=== PATIENT | female | born 1985 | race Caucasian/White ===

== ENCOUNTER 2018-06-14 12:03 | Inpatient (IN) | payer MEDICAID, OTHER ==
[~2018-06-14] VITALS: Ht 165.1 cm; Wt 71.7 kg
[~2018-06-14 12:03] MED LIST: IMU50 PO; ONDA8ODT2 PO; SERT100T PO; TRAZ-343 PO
[2018-06-14 12:11] VITALS: BP 126/86
--- NOTE | 2018-06-14 12:16 | NUR ---
PT AMBULATES TO BED 9
--- NOTE | 2018-06-14 12:20 | NUR ---
33 YO F BIB BOYFRIEND W/ C/O RIGHT SIDE RIB PAIN X LAST NIGHT. PT STATES THE PAIN IS SHARP /. DENIES N/V, REPORTS HAVING COLD SYMPTOMS W/ PRODUCTIVE COUGH X 4 DAYS. DIMINISHED RLL , TACHYPENIA. SHALLOW BREATHS. PT STATES INCREASED PAIN WITH DEEP RR. TASHA CONTINUE TO MONITOR. HX CHRONES DISEASE, ILLESOSTOMY RX DENIES
[2018-06-14] MEDS ORDERED: KETOROLAC 30 MG/ML VIAL IVP ONE (12:40)
[2018-06-14] MEDS ORDERED: NACL 0.9% 1,000 ML IV ONE (12:40)
--- NOTE | 2018-06-14 12:47 | NUR ---
PT TO RADIOLOGY VIA W/ IN STABLE CONDITION
[2018-06-14 13:21] LABS: BASOPHILS % (AUTO) 0.1 % (0.0-2.0); HEMATOCRIT 42.9 % (36-48); LYMPHOCYTES # (AUTO) 0.6 K/uL (2.5-16.5); LYMPHOCYTES % (AUTO) 2.6 % (20.5-51.1); MEAN CORPUSCULAR HEMOGLOBIN 28 pg (27-31); MEAN CORPUSCULAR HGB CONC 33 g/dL (33-37); MONOCYTES # (AUTO) 1.4 K/uL (0.8-1.0); MONOCYTES % (AUTO) 6.4 % (1.7-9.3); NEUTROPHILS # (AUTO) 19.5 K/uL (1.8-7.7); NEUTROPHILS % (AUTO) 90.9 % (42.2-75.2); PLATELET COUNT (AUTO) 208 K/uL (140-450); RED BLOOD CELL COUNT(AUTO) 4.99 MIL/uL (4.20-5.40); RED CELL DISTRIBUTION WIDTH 14.6 % (11.6-13.7)
[2018-06-14] MEDS ORDERED: fentaNYL 0.05 MG/ML VIAL IVP ONE (13:25)
[2018-06-14 13:32] LABS: ALBUMIN 3.4 g/dL (3.4-5.0); CREATININE 0.8 mg/dL (0.6-1.3); POTASSIUM 3.3 mmol/L (3.5-5.1); TOTAL BILIRUBIN 2.5 mg/dL (0.0-1.0)
[2018-06-14 13:35] LABS: WHITE BLOOD COUNT (AUTO) 21.5 K/uL (4.8-10.8)
[2018-06-14] MEDS ORDERED: PIPERACILLIN/TAZOBACTAM 3.375 GM in DEXTROSE 5% 50 ML IV ONE (13:45)
--- NOTE | 2018-06-14 14:15 | NUR ---
US AT BEDSIDE.
[2018-06-14] MEDS ORDERED: PIPERACILLIN/TAZOBACTAM 3.375 GM VIAL IV ONE (14:17)
[2018-06-14 14:18] LABS: ANION GAP 13.2 (8-16); CARBON DIOXIDE 23.1 mmol/L (21-32)
[2018-06-14] MEDS ORDERED: ONDANSETRON 4 MG/2 ML VIAL IVP PRN (15:00)
[2018-06-14] MEDS ORDERED: ALBUTEROL 0.083% 2.5 MG/3 ML NEBU IH PRN (15:00)
[2018-06-14] MEDS ORDERED: ACETAMINOPHEN 325 MG TAB PO PRN (15:00)
[2018-06-14] MEDS ORDERED: LORazepam 2 MG/ML VIAL IVP PRN (15:00)
--- NOTE | 2018-06-14 15:51 | NUR ---
PT TAKEN TO FLOOR BY BHARATI KENNEDY VIA WHEELCHAIR
--- NOTE | 2018-06-14 15:58 | NUR ---
Patient will be admitted to care of DR DE LA FUENTE. Admited to M/S. Will go to room 111B. Belongings list completed. Report to KANA CALABRESE .
[2018-06-14 16:00] VITALS: BP 134/78
--- NOTE | 2018-06-14 16:00 | NUR ---
RECEIVED PT REPORT FORM ER NURSE NIKA, AT BEDSIDE. PT IS AAOX4, AMBULATORY. CC: RIGHT RIB PAIN. DX PNA, TRANSAMINITIS, LEUKOCYTOSIS. VITALS TAKEN, MRSA SWAB DONE. PT C/O PAIN 04/08, SEEMS ANXIOUS, WILL ADMINISTER ATIVAN AND CONTACT ATTENDING MD ABOUT PAIN MEDS. ORIENTED PT TO ROOM. BED IN LOWEST POSITION, CALL LIGHT WITHIN REACH. MADE PT AWARE THAT URINE SPECIMEN IS NEEDED.
--- NOTE | 2018-06-14 16:30 | NUR ---
PT STATED SHE HAD DILAUDID 2MG AT OTHER HOSPITAL BEFORE AND THERE WAS NO PROBLEM. SPOKE WITH DR DE LA FUENTE OVER THE PHONE, PAIN MEDS ORDERED, DILAUDID 1MG IVP Q4H.
[2018-06-14] MEDS: NACL 0.9% 1,000 ML IV SCH (16:36)
[2018-06-14] MEDS ORDERED: KETOROLAC 30 MG/ML VIAL IVP PRN (16:40)
[2018-06-14] MEDS: HYDROmorphone 1 MG/ML AMP IVP PRN ×2 (16:57→21:56)
--- NOTE | 2018-06-14 18:30 | NUR ---
PT IS AWAKE, ADMISSION QUESTIONS TAKEN. PT STATED THIRSTY, OFFERED 3 JUICE BOXES. NO S/S OF ACUTE DISTRESS ON ROOM AIR. ILEOSTOMY BAG IS INTACT AND NO LEAKING.
--- NOTE | 2018-06-14 19:30 | NUR ---
ENDORSED PT TO DIRECTOR OF LEADERSHIP DEVELOPMENT RN. PT IN STABLE CONDITION. SIGNIFICANT OTHER AT BEDSIDE.
--- NOTE | 2018-06-14 19:31 | NUR ---
RECEIVED BEDSIDE REPORT FROM DAY SHIFT RN. PT IS A&OX4. PT WITH LABORED RESPIRATION. WHEEZING WILL NOTIFY RT. O2 SAT 95 ON ROOM AIR. RR 20. IV ON L AC INFUSING NS AT 80ML/H. SKIN IS INTACT. SAFETY MEASURES IN PLACE. BOYFRIEND AT BEDSIDE. AWARE OF VISITING HOURS STATES MD GAVE HIM PERMISSION TO STAY THE NIGHT WILL CONFIRM WITH CHARGE NURSE. SAFETY MEASURES IN PLACE. CALL LIGHT WITHIN REACH.
--- NOTE | 2018-06-14 20:00 | NUR ---
PT REFUSED BREATHING TREATMENT. WILL OFFER AGAIN IN 30 MINUTES. O2 SAT 94 RA
[2018-06-14] MEDS: HYDROcodone/APAP 5/325 MG 1 TAB TAB PO PRN (20:33)
--- NOTE | 2018-06-14 20:33 | NUR ---
ADMINISTERED NORCO FOR PAIN AND OFFERED BREATHING TREATMENT PT REFUSED. RT APPLIED NC AT 4L. WILL CONTINUE TO MONITOR. SAFETY MEASURES IN PLACE. BOYFRIEND AT BEDSIDE CALL LIGHT WITHIN REACH.
[2018-06-14] MEDS: NAPROXEN 375 MG TAB PO SCH (20:34)
--- NOTE | 2018-06-14 20:34 | NUR ---
ENDORSED PT TO SOLAR FIELD SERVICE TECHNICIAN RN. PT IN STABLE CONDITION. SIGNIFICANT OTHER AT BEDSIDE. Addendum: 06/14/18 at 2034 by Landry Mccauley RN PLEASE DISCARD, WRONG TIME ENTERED
[2018-06-14] MEDS: PIPER/TAZO 3.375GM/D5W PREMIX 50 ML IV SCH (20:36)
[2018-06-14] MEDS ORDERED: azaTHIOprine 50 MG TAB PO SCH (21:00)
[2018-06-14] MEDS ORDERED: PIPERACILLIN/TAZOBACTAM 3.375 GM in DEXTROSE 5% 50 ML IV SCH (21:00)
[2018-06-14] MEDS ORDERED: traZODone 50 MG TAB PO SCH (21:00)
--- NOTE | 2018-06-14 21:56 | NUR ---
PT COMPLAIN OF PAIN WILL ADMINISTER PAIN MEDICATIONS PER DR ORDERS. [place] STILL REFUSING BREATHING TREATMENT. WILL CONTINUE TO MONITOR.
[2018-06-15] VITALS: BP 121/72
--- NOTE | 2018-06-15 | NUR ---
VITAL SIGNS ARE STABLE. PT STILL REFUSING BREATHING TREATMENT O2 SAT 99% ON NC. BOYFRIEND IS AT BEDSIDE. [facility]
--- NOTE | 2018-06-15 02:00 | NUR ---
PT SLEEPING NO DISTRESS NOTED. RESPIRATION EQUAL AND UNLABORED. CALL LIGHT WITHIN REACH.
[2018-06-15] MEDS: NACL 0.9% 1,000 ML IV SCH (02:56)
[2018-06-15] MEDS: HYDROmorphone 1 MG/ML AMP IVP PRN ×3 (03:00→13:27)
--- NOTE | 2018-06-15 04:00 | NUR ---
ZOSYN NOW INFUSING. PT TOLERATED WELL. NO DISTRESS NOTED. BOYFRIEND AT BEDSIDE. CALL LIGHT WITHIN REACH.
[2018-06-15] MEDS: PIPER/TAZO 3.375GM/D5W PREMIX 50 ML IV SCH ×2 (04:57→12:28)
--- NOTE | 2018-06-15 06:25 | NUR ---
PATIENT HAS BEEN SCREENED AND CATEGORIZED MODERATE NUTRITION RISK. PATIENT WILL BE SEEN WITHIN 3-5 DAYS OF ADMISSION. 06/17/18-06/19/18 KATHRIN ASHFORD MS, RDN
--- NOTE | 2018-06-15 06:25 | NUR ---
SPOKE WITH DR AYALA TO VERIFY DOSE FOR IMURAN. WILL CHANGE DOSE TO 5OMG DAILY PER ORDERS.
[2018-06-15] MEDS: HYDROcodone/APAP 5/325 MG 1 TAB TAB PO PRN (06:59)
--- NOTE | 2018-06-15 07:30 | NUR ---
ENDORSED PT TO DAY SHIFT RN. PT IN STABLE CONDITION.
--- NOTE | 2018-06-15 07:31 | NUR ---
RECEIVED REPORT FORM PM NURSE AT BEDSIDE FOR CONTINUITY OF CARE. PT LYING ON HER BED, FAMILY AT BEDSIDE. PT HAS ILEOSTOMY BAG, HAS IV ACCESS ON HER LFT AC 22 G, IVF INFUSING AT 80 ML/HR. PT COMPLAINING OF PAIN, ASKING FOR PAIN MEDS. INFORMED PT THAT WILL CHECK WITH EMAR AND ADMINISTER MEDS ORDERED. VERBALIZED UNDERSTANDING. PT HAS WHEEZING, DX OF PNA, PER PM NURSE, PT DENIES BT IT MAKES HER MORE ANXIOUS. INFORMED HE THAT WILL HELPS TO CLEAR THE SECRETION FROM LUNGS , HELPS IN BREATHING WELL AND WITH TREATMENT OF PNA. DENIES AT THIS TIME. CALL LIGHT WITHIN REACH. INFORMED HER TO USE CALL LIGHT FO R ANY HELP. WILL CONTINUE TO MONITOR PT.
[2018-06-15 07:40] LABS: BASOPHILS % (AUTO) 0.2 % (0.0-2.0); EOSINOPHILS # (AUTO) 0.1 K/uL (0-0.4); EOSINOPHILS % (AUTO) 0.8 % (0.0-4.0); HEMATOCRIT 40.1 % (36-48); HEMOGLOBIN 13.2 g/dL (12.0-16.0); LYMPHOCYTES # (AUTO) 1.8 K/uL (2.5-16.5); LYMPHOCYTES % (AUTO) 13.6 % (20.5-51.1); MEAN CORPUSCULAR HEMOGLOBIN 28 pg (27-31); MEAN CORPUSCULAR HGB CONC 33 g/dL (33-37); MEAN CORPUSCULAR VOLUME 85.9 fL (80-94); MONOCYTES % (AUTO) 7.4 % (1.7-9.3); NEUTROPHILS # (AUTO) 10.2 K/uL (1.8-7.7); PLATELET COUNT (AUTO) 188 K/uL (140-450); RED BLOOD CELL COUNT(AUTO) 4.67 MIL/uL (4.20-5.40); RED CELL DISTRIBUTION WIDTH 14.4 % (11.6-13.7)
[2018-06-15 07:46] LABS: ALBUMIN 3.1 g/dL (3.4-5.0); ANION GAP 12.3 (8-16); CARBON DIOXIDE 24.6 mmol/L (21-32); CREATININE 0.8 mg/dL (0.6-1.3); MAGNESIUM 1.9 mg/dL (1.8-2.4); TOTAL BILIRUBIN 1.4 mg/dL (0.0-1.0)
[2018-06-15 07:51] LABS: POTASSIUM 2.9 mmol/L (3.5-5.1)
[2018-06-15 08:00] VITALS: BP 119/56
--- NOTE | 2018-06-15 08:15 | NUR ---
CALLED DR DE LA FUENTE FOR PT LOW POTASSIUM LEVEL 2.9. RECEIVED TORB FOR K-RIDER 60 MEQ IV OVER 6 HRS. CHARGE NURSE AWARE. PLACED ORDER WITH RECEIVED. WILL CONTINUE TO MONITOR PT.
[2018-06-15] MEDS: NAPROXEN 375 MG TAB PO SCH (08:54)
[2018-06-15] MEDS ORDERED: ENOXAPARIN 40 MG/0.4 ML SYR SUBQ SCH (09:00)
[2018-06-15] MEDS ORDERED: azaTHIOprine 50 MG TAB PO SCH ×2 (09:00)
[2018-06-15] MEDS ORDERED: SERTRALINE 50 MG TAB PO SCH (09:00)
[2018-06-15] MEDS ORDERED: POTASSIUM CHLORIDE 60 MEQ, LIDOCAINE MPF 1% - 5 mL VIAL 25 MG in NACL 0.9% 250 ML IV SCH (09:00)
--- NOTE | 2018-06-15 09:00 | NUR ---
ADMINISTERED MEDS TO PT ORDERED, ADMINISTER PAIN MESDS FOR PAIN MANAGEMENT. HAS K-RIDER INFUSING, PT HAS LOWER POTASSIUM 2.9. TOLERATED WELL. ALL SAFETY MEASURE IN PLACE. WILL CONTINUE TO MONITOR PT.
[2018-06-15] MEDS ORDERED: LEVO750T2 PO (10:48)
--- NOTE | 2018-06-15 12:00 | NUR ---
CHECKED ON PT, SITTING ON HER BED, EATING LUNCH. INFORMED HER THAT SHE HAS BEEN DISCHARGED WITH ORAL ABX FOR 7 DAYS. WILL WORK ON DC PAPER, K-RIDER STILL INFUSING. WILL CONTINUE TO MONITOR PT.
--- NOTE | 2018-06-15 13:30 | NUR ---
PT COMPLAINING OF PAIN 02/05. MEDICATED WITH PAIN MEDS. WILL REASSES FOR PAIN IN 1 HOUR.
[2018-06-15 15:48] VITALS: BP 120/65
--- NOTE | 2018-06-15 16:15 | NUR ---
PT WENT HOME WITH ALL HER BELONGINGS AND DC PACKET . PT GIVE PRESCRIPTION WITH ORAL ABX FOR 7 DAYS. EDUCATED PT TO CONTINUE TO TAKE MEDS ORDERED AND TO COMPLETE THE ABX THERAPY ORDERED TO PREVENT THE RESISTANT OF DRUGS. VERBALIZED UNDERSTANDING. IV ACCESS SITE TAKEN OUT BY STUDENT NURSE, PT STABLE AT TIME OF DISCHARGE AND IS AO X 4.
--- NOTE | 2018-06-17 14:40 | NUR ---
CALLED THE [facility] OFFICE FOR DR. SOPHY WALTON, [phone]. I SPOKE WITH KATHLEEN AND SHE SET UP AN APPOINTMENT WITH DR. MORALES FOR 9A.M. ON 06/26/18. PATIENT SEES BOTH DR WALTON AND DR. MORALES. THE OFFICE IS [address] [place] [address]. I CALLED THE PATIENT'S PHONE AND SPOKE WITH THE FINANCEE, RADHA. HE CALLED FOR THE PATIENT AND HE SAID THE PATIENT WAS IN THE SHOWER. I GAVE HIM THE INFORMATION INCLUDING THE DATE AND TIME AND PHONE NUMBER AND ADDRESS. HE SAID HE WOULD TELL THE PATIENT. PHONE FOR PATIENT IS [phone].
== END 2018-06-15 16:15 | disposition home or self-care (01) | DRG 720 ==
LOC: MED 12:03 → MTU 15:05
PROVIDERS: ADMIT Hospitalist; ATTEND Hospitalist
DX: A41.9 Sepsis, unspecified organism (principal); J18.9 Pneumonia, unspecified organism; E87.1 Hypo-osmolality and hyponatremia; K50.10 Crohn's disease of large intestine without complications; D72.829 Elevated white blood cell count, unspecified; E87.6 Hypokalemia; F32.9 Major depressive disorder, single episode, unspecified; F41.9 Anxiety disorder, unspecified; T50.905A Adverse effect of unspecified drugs, medicaments and biological substances, initial encounter; Y92.89 Other specified places as the place of occurrence of the external cause; Z88.5 Allergy status to narcotic agent; Z88.8 Allergy status to other drugs, medicaments and biological substances; Z90.49 Acquired absence of other specified parts of digestive tract; Z93.2 Ileostomy status
CPT/HCPCS: 36415; 71101; 76705; 80053; 83690; 83735; 85025; 87040; 87081; 96365; 96375; 99285; J1170; J1650; J1885; J2001; J2060; J2543; J3010; J3480; J7030; J7060; J7613; Q0092

== ENCOUNTER 2019-12-04 09:41 | Emergency (ER) | payer SELFPAY ==
[~2019-12-04] VITALS: Ht 165.1 cm; Wt 72.6 kg
[~2019-12-04 09:41] MED LIST changes: +LEVO750T2 PO; +ONDA-25 PO; -ONDA8ODT2 PO
[2019-12-04 09:54] VITALS: BP 111/85
--- NOTE | 2019-12-04 09:59 | NUR ---
Patient ambulated to bed 5. RN evaluating patient at bedside.
--- NOTE | 2019-12-04 10:16 | NUR ---
PT C/O BILATERAL BURNING EYE PAIN WITH YELLOWISH/GREENISH DRAINAGE X 4 DAYS. PT REPORTS BLURRY VISION AND DECREASED DEPTH PERCEPTION, AND THE PAIN INCREASES WHILE BENDING HER HEAD. PT ALSO HAS ILLEOSTOMY & STATES THE BAG IS LEAKING. NO SINUS TENDERNESS ON PALPATION. PATIENT STATES PAIN OF 5/10 AT THIS TIME; VSS; PATIENT POSITIONED FOR COMFORT; HOB ELEVATED; BEDRAILS UP X1; BED DOWN. ER MD MADE AWARE OF PT STATUS.
[2019-12-04] MEDS: FLUORESCEIN OPTH STRIP 1 MG OP ONE (10:24)
[2019-12-04] MEDS: TETRACAINE HCL/PF 0.5% OPTH 4 ML BTL OP ONE (10:24)
[2019-12-04] MEDS ORDERED: TOMOMETER 1 DEV DEV MC ONE (10:28)
--- NOTE | 2019-12-04 10:40 | NUR ---
Dr. Bell is evaluating the patient at bedside.
[2019-12-04 11:31] VITALS: BP 110/81
--- NOTE | 2019-12-04 11:31 | NUR ---
Patient discharged with v/s stable. Written and verbal after care instructions given and explained. Patient alert, oriented and verbalized understanding of instructions. Ambulatory with steady gait. All questions addressed prior to discharge. ID band removed. Patient advised to follow up with PMD. Rx of POLYTRIM given. Patient educated on indication of medication including possible reaction and side effects. Opportunity to ask questions provided and answered.
== END 2019-12-04 11:31 | disposition home or self-care (01) ==
LOC: MED 09:41
DX: H10.89 Other conjunctivitis (principal); Z88.2 Allergy status to sulfonamides; Z88.5 Allergy status to narcotic agent; Z79.899 Other long term (current) drug therapy; Z98.890 Other specified postprocedural states; K50.90 Crohn's disease, unspecified, without complications
CPT/HCPCS: 99283